=== PATIENT | male | born 1960 | race Caucasian/White ===

== ENCOUNTER 2016-05-30 00:02 | Emergency (ER) | payer OTHER ==
[2016-05-30 00:10] VITALS: TEMP 97.8
[2016-05-30] MEDS ORDERED: LIDOCAINE HCL 1% MPF SOL ONE (00:16)
[2016-05-30] MEDS ORDERED: BACITRACIN 500 U/GM OIN TOP ONE ×2 (00:35)
[2016-05-30 00:54] VITALS: BP 139/66; PULSE 82; RESP 16; O2SAT 96
== END 2016-05-30 00:50 | disposition home or self-care (01) ==
LOC: ED 00:02
DX: S01.81XA Laceration without foreign body of other part of head, initial encounter (principal); W01.198A Fall on same level from slipping, tripping and stumbling with subsequent striking against other object, initial encounter
CPT/HCPCS: 12013 ×2; 99283; J2001; A6402; A6446